=== PATIENT | male | born 1950 | race Caucasian/White ===

== ENCOUNTER 2022-04-29 09:36 | Outpatient (CLI) | payer MEDICARE, OTHER | END 2022-04-29 09:37 | disposition home or self-care (01) | LOC: CSHLAB 09:36 | PROVIDERS: ATTEND Internal Medicine Critical Care Medicine | DX: Z20.822 Contact with and (suspected) exposure to COVID-19 (principal) | CPT/HCPCS: 87811 ==

== ENCOUNTER 2022-05-04 09:13 | Outpatient (CLI) | payer MEDICARE, OTHER | END 2022-05-04 09:14 | disposition home or self-care (01) | LOC: CSHCP 09:13 | PROVIDERS: ATTEND Internal Medicine Critical Care Medicine | DX: J84.9 Interstitial pulmonary disease, unspecified (principal); R94.2 Abnormal results of pulmonary function studies; R91.1 Solitary pulmonary nodule; J93.9 Pneumothorax, unspecified; C79.89 Secondary malignant neoplasm of other specified sites | CPT/HCPCS: 71250; 94010; 94726; 94729; 94760 ==

== ENCOUNTER 2022-05-04 12:08 | Emergency (ER) | payer MEDICARE, OTHER ==
[2022-05-04 13:17] LABS: PTT 28.1 sec (22.0-33.0); Prothrombin Time 10.9 sec (9.5-12.1)
[2022-05-04 13:20] LABS: #Basophils 0.1 10x3/uL (0.0-0.2); #Eosinphils 0.2 10x3/uL (0.0-0.5); #Monocytes 1.4 10x3/uL (0.0-1.1); #Neutrophils 7.3 10x3/uL (1.5-8.4); %Basophils 0.6 % (0.0-2.0); %Eosinophils 1.9 % (0.0-6.0); %Lymphocytes 12.4 % (18.0-47.0); %Monocytes 13.6 % (0.0-10.0); %Neutrophils 71.2 % (40.0-75.0); Hemoglobin 11.2 g/dL (13.5-17.5); Mean Corpuscular HGB CONC 33.2 g/dL (32.0-36.0); Mean Corpuscular Hemoglobin 30.6 pg (27.0-33.0); Mean Corpuscular Volume 92.1 fl (81.2-95.1); Mean Platelet Volume 8.5 fl (7.4-10.4); Platelet Count 268 10x3/uL (150-450); RBC Distribution Width 12.6 % (11.5-14.5); Red Blood Cell (RBC) Count 3.66 10x6/uL (4.32-5.72); White Blood Cell (WBC) Count 10.3 10x3/uL (3.5-10.5)
[2022-05-04 13:29] LABS: ALT (SGPT) 29 U/L (8-55); AST (SGOT) 37 U/L (5-34); Albumin 4.1 g/dL (3.4-4.8); Alkaline Phosphatase 80 U/L (40-110); Anion Gap 14 mmol/L (10-20); BUN (Urea Nitrogen) 22 mg/dL (8.4-25.7); Bilirubin, Total 0.5 mg/dL (0.2-1.2); Calc. Creatinine Clearance 0 mL/min (70-130); Calcium 9.4 mg/dL (7.8-10.44); Carbon Dioxide 24 mmol/L (23-31); Chloride 106 mmol/L (98-107); Estimated GFR 84; Globulin 3.9 g/dL (2.4-3.5); Glucose 98 mg/dL (83-110); Potassium 4.4 mmol/L (3.5-5.1); Sodium 140 mmol/L (136-145)
== END 2022-05-04 14:38 | disposition short-term general hospital (02) ==
LOC: CSHERS 12:08
DX: J93.83 Other pneumothorax (principal); J84.9 Interstitial pulmonary disease, unspecified
CPT/HCPCS: 80053; 85025; 85610; 85730; 93005